=== PATIENT | male | born 1960 | race Caucasian/White ===

== ENCOUNTER → 2023-11-21 10:52 | Outpatient (REF) | payer MEDICARE, SELFPAY ==
[2023-11-21 12:28] LABS: HDL Cholesterol 44 mg/dl; LDL Cholesterol, Calculated 131 mg/dl; Total Cholesterol 244 mg/dl (50-199); Triglyceride 347 mg/dl (10-149); Very Low Density Lipoprotein 69 mg/dl (0-30)
== END ==
LOC: REG 10:52
PROVIDERS: ATTENDING PHYSICIAN Internal Medicine Cardiovascular Disease; FAMILY PHYSICIAN Family Medicine
DX: E78.2 Mixed hyperlipidemia (principal)
CPT/HCPCS: 36415; 80061

== ENCOUNTER → 2024-02-13 09:53 | Outpatient (REF) | payer MEDICARE, SELFPAY ==
[2024-02-13 13:15] LABS: Erythrocyte Sed Rate 15 mm/hour (0-20)
[2024-02-13 13:51] LABS: ALT (SGPT) 27 U/L (0-50); AST (SGOT) 23 U/L (17-59); Albumin 4.2 g/dl (3.5-5.0); Alkaline Phosphatase 70 U/L (38-126); Blood Urea Nitrogen 20 mg/dl (9-20); Calcium 10.4 mg/dl (8.4-10.2); Carbon Dioxide 28 mmol/L (22-30); Chloride 101 mmol/L (98-107); Glucose 120 mg/dl (70-99); HDL Cholesterol 54 mg/dl; LDL Cholesterol, Calculated 64 mg/dl; Potassium 5.2 mmol/L (3.5-5.1); Sodium 138 mmol/L (135-145); Total Bilirubin 0.3 mg/dl (0.2-1.3); Total Cholesterol 154 mg/dl (50-199); Total Protein 7.1 g/dl (6.3-8.2); Triglyceride 182 mg/dl (10-149); Uric Acid 5.4 mg/dl (3.5-8.5); Very Low Density Lipoprotein 36 mg/dl (0-30); eGFR > 60.00
[2024-02-15 14:33] LABS: Rheumatoid Agglutinin Less Than 10 IU (<10 IU)
== END ==
LOC: REG 09:53
PROVIDERS: ATTENDING PHYSICIAN Family Medicine; REFERRING PHYSICIAN Internal Medicine Cardiovascular Disease
DX: M25.50 Pain in unspecified joint (principal); E11.69 Type 2 diabetes mellitus with other specified complication; E78.2 Mixed hyperlipidemia
CPT/HCPCS: 36415; 80053; 80061; 84550; 85652; 86140; 86430

== ENCOUNTER 2024-02-13 11:01 | Outpatient (RCR) | payer MEDICARE, SELFPAY | END 2024-02-13 23:59 | disposition home or self-care (01) | LOC: ROT 11:01 | PROVIDERS: ATTENDING PHYSICIAN Orthopaedic Surgery Hand Surgery; FAMILY PHYSICIAN Family Medicine | DX: Z47.89 Encounter for other orthopedic aftercare (principal); Z73.6 Limitation of activities due to disability | CPT/HCPCS: 97166; 97535 ==

== ENCOUNTER 2024-03-14 11:16 | Outpatient (RCR) | payer MEDICARE, SELFPAY | END 2024-03-14 23:59 | disposition home or self-care (01) | LOC: ROT 11:16 | PROVIDERS: ATTENDING PHYSICIAN Orthopaedic Surgery Hand Surgery; FAMILY PHYSICIAN Family Medicine | DX: Z47.89 Encounter for other orthopedic aftercare (principal); Z73.6 Limitation of activities due to disability; M25.531 Pain in right wrist | CPT/HCPCS: 97010; 97110; 97140 ==

== ENCOUNTER 2024-04-02 13:20 | Outpatient (RCR) | payer MEDICARE, SELFPAY | END 2024-04-02 23:59 | disposition home or self-care (01) | LOC: ROT 13:20 | PROVIDERS: ATTENDING PHYSICIAN Orthopaedic Surgery Hand Surgery; FAMILY PHYSICIAN Family Medicine | DX: Z47.89 Encounter for other orthopedic aftercare (principal); Z73.6 Limitation of activities due to disability | CPT/HCPCS: 97018; 97022; 97110; 97140 ==

== ENCOUNTER → 2024-05-08 08:06 | Outpatient (REF) | payer MEDICARE, SELFPAY ==
[2024-05-08 11:50] LABS: ALT (SGPT) 20 U/L (0-50); AST (SGOT) 22 U/L (17-59); Albumin 4.3 g/dl (3.5-5.0); Alkaline Phosphatase 64 U/L (38-126); Blood Urea Nitrogen 19 mg/dl (9-20); Carbon Dioxide 29 mmol/L (22-30); Chloride 98 mmol/L (98-107); Glucose 127 mg/dl (70-99); HDL Cholesterol 56 mg/dl; LDL Cholesterol, Calculated 126 mg/dl; Potassium 4.6 mmol/L (3.5-5.1); Sodium 137 mmol/L (135-145); Total Bilirubin 0.5 mg/dl (0.2-1.3); Total Cholesterol 219 mg/dl (50-199); Total Protein 6.8 g/dl (6.3-8.2); Triglyceride 187 mg/dl (10-149); Very Low Density Lipoprotein 37 mg/dl (0-30); eGFR > 60.00
[2024-05-08 12:16] LABS: PSA, Total - Screen 0.76 ng/ml (0.0-4.0)
[2024-05-08 12:25] LABS: Glycohemoglobin (HgbA1c) 6.9 % (4.0-5.6)
== END ==
LOC: REG 08:06
PROVIDERS: ATTENDING PHYSICIAN Internal Medicine Cardiovascular Disease; FAMILY PHYSICIAN Family Medicine
DX: E11.69 Type 2 diabetes mellitus with other specified complication (principal); Z12.5 Encounter for screening for malignant neoplasm of prostate; E78.5 Hyperlipidemia, unspecified
CPT/HCPCS: 36415; 80053; 80061; 83036; G0103

== ENCOUNTER 2024-05-17 08:21 | Outpatient (RCR) | payer MEDICARE, SELFPAY | END 2024-05-17 23:59 | disposition home or self-care (01) | LOC: ROT 08:21 | PROVIDERS: ATTENDING PHYSICIAN Orthopaedic Surgery Hand Surgery; FAMILY PHYSICIAN Family Medicine | DX: Z47.89 Encounter for other orthopedic aftercare (principal); Z73.6 Limitation of activities due to disability | CPT/HCPCS: 97010; 97022; 97110; 97140 ==

== ENCOUNTER 2024-06-07 09:05 | Outpatient (RCR) | payer MEDICARE, SELFPAY | END 2024-06-07 23:59 | disposition home or self-care (01) | LOC: ROT 09:05 | PROVIDERS: ATTENDING PHYSICIAN Orthopaedic Surgery Hand Surgery; FAMILY PHYSICIAN Family Medicine | DX: Z47.89 Encounter for other orthopedic aftercare (principal); Z73.6 Limitation of activities due to disability; M25.531 Pain in right wrist | CPT/HCPCS: 97022; 97110; 97140 ==

== ENCOUNTER → 2024-06-14 09:30 | Outpatient (REF) | payer MEDICARE, SELFPAY ==
[2024-06-14 11:26] LABS: % Basophils 0.6 % (0-2); % Eosinophils 2.8 % (0-6); % Immature Granulocytes 0.6 % (0-0.5); % Lymphocytes 19.8 % (20.5-51.1); % Monocytes 9.8 % (1.7-9.3); % Neutrophils 66.4 % (42.2-75.2); Absolute Basophils 0.1 10^3/uL (0-0.2); Absolute Eosinophils 0.4 10^3/uL (0-0.7); Absolute Immature Granulocytes 0.1 10^3/uL (0-0.05); Absolute Lymphocytes 2.5 10^3/uL (1.2-3.4); Absolute Monocytes 1.2 10^3/uL (0.1-0.6); Absolute Neutrophils 8.2 10^3/uL (1.4-6.5); Hematocrit 42.2 % (39.0-52.0); Mean Corp Hgb Conc. 33.2 g/dL (33.0-37.0); Mean Corpuscular Hgb 28.3 pg (27.0-31.0); Mean Corpuscular Volume 85.3 fL (80.0-94.0); Mean Platelet Volume 10.5 fL (7.4-10.4); Nucleated Red Blood Cells % 0 % (-); Platelet Count 405 10^3/uL (130-400); Red Blood Cell Count 4.95 10^6/uL (4.70-6.10); Red Cell Dist. Width 13.6 % (11.5-14.5); White Blood Cell Count 12.4 10^3/uL (4.8-10.8)
[2024-06-14 11:57] LABS: ALT (SGPT) 19 U/L (0-50); AST (SGOT) 20 U/L (17-59); Albumin 4.3 g/dl (3.5-5.0); Alkaline Phosphatase 76 U/L (38-126); Blood Urea Nitrogen 18 mg/dl (9-20); Calcium 9.8 mg/dl (8.4-10.2); Carbon Dioxide 27 mmol/L (22-30); Chloride 99 mmol/L (98-107); Glucose 115 mg/dl (70-99); Potassium 4.6 mmol/L (3.5-5.1); Sodium 141 mmol/L (135-145); Total Bilirubin 0.4 mg/dl (0.2-1.3); eGFR > 60.00
[2024-06-14 12:21] LABS: TSH 2.02 uIU/ml (0.47-4.68)
== END ==
LOC: REG 09:30
PROVIDERS: ATTENDING PHYSICIAN Physician Assistant
DX: J06.9 Acute upper respiratory infection, unspecified (principal); I48.91 Unspecified atrial fibrillation
CPT/HCPCS: 36415; 80053; 84443; 85025; 87045; 87046; 87324; 87328; 87329; 87427; 87449

== ENCOUNTER → 2024-06-18 15:12 | Outpatient (REF) | payer MEDICARE, SELFPAY | LOC: RAD 15:12 | PROVIDERS: ATTENDING PHYSICIAN Nurse Practitioner Family; FAMILY PHYSICIAN Family Medicine | DX: R06.00 Dyspnea, unspecified (principal) | CPT/HCPCS: 71046 ==

== ENCOUNTER → 2024-07-31 09:33 | Outpatient (REF) | payer MEDICARE, SELFPAY ==
[2024-07-31 10:52] LABS: ALT (SGPT) 23 U/L (0-50); AST (SGOT) 23 U/L (17-59); HDL Cholesterol 49 mg/dl; LDL Cholesterol, Calculated 48 mg/dl; Total Cholesterol 132 mg/dl (50-199); Triglyceride 176 mg/dl (10-149); Very Low Density Lipoprotein 35 mg/dl (0-30)
== END ==
LOC: REG 09:33
PROVIDERS: ATTENDING PHYSICIAN Internal Medicine Cardiovascular Disease; FAMILY PHYSICIAN Family Medicine
DX: E78.2 Mixed hyperlipidemia (principal)
CPT/HCPCS: 36415; 80061; 84450; 84460

== ENCOUNTER → 2024-08-10 11:20 | Outpatient (REF) | payer MEDICARE, SELFPAY ==
[2024-08-10 12:35] LABS: ALT (SGPT) 25 U/L (0-50); AST (SGOT) 22 U/L (17-59); Albumin 4.3 g/dl (3.5-5.0); Alkaline Phosphatase 58 U/L (38-126); Blood Urea Nitrogen 16 mg/dl (9-20); Calcium 9.9 mg/dl (8.4-10.2); Carbon Dioxide 31 mmol/L (22-30); Chloride 100 mmol/L (98-107); Glucose 130 mg/dl (70-99); Potassium 5.2 mmol/L (3.5-5.1); Sodium 142 mmol/L (135-145); Total Bilirubin 0.7 mg/dl (0.2-1.3); eGFR > 60.00
[2024-08-10 14:17] LABS: Glycohemoglobin (HgbA1c) 7.3 % (4.0-5.6)
== END ==
LOC: REG 11:20
PROVIDERS: ATTENDING PHYSICIAN Family Medicine
DX: E11.69 Type 2 diabetes mellitus with other specified complication (principal)
CPT/HCPCS: 36415; 80053; 83036

== ENCOUNTER → 2024-11-20 07:12 | Outpatient (REF) | payer MEDICARE, SELFPAY ==
[2024-11-20 09:12] LABS: % Basophils 0.6 % (0-2); % Eosinophils 2.6 % (0-6); % Immature Granulocytes 0.4 % (0-0.5); % Lymphocytes 23.8 % (20.5-51.1); % Monocytes 8.7 % (1.7-9.3); % Neutrophils 63.9 % (42.2-75.2); Absolute Basophils 0.1 10^3/uL (0-0.2); Absolute Eosinophils 0.3 10^3/uL (0-0.7); Absolute Lymphocytes 2.7 10^3/uL (1.2-3.4); Absolute Neutrophils 7.2 10^3/uL (1.4-6.5); Hematocrit 46.1 % (39.0-52.0); Hemoglobin 14.6 g/dL (13.0-18.0); Mean Corp Hgb Conc. 31.7 g/dL (33.0-37.0); Mean Corpuscular Hgb 27.8 pg (27.0-31.0); Mean Corpuscular Volume 87.8 fL (80.0-94.0); Mean Platelet Volume 10.4 fL (7.4-10.4); Nucleated Red Blood Cells % 0 % (-); Platelet Count 410 10^3/uL (130-400); Red Blood Cell Count 5.25 10^6/uL (4.70-6.10); Red Cell Dist. Width 14.3 % (11.5-14.5); White Blood Cell Count 11.3 10^3/uL (4.8-10.8)
[2024-11-20 09:26] LABS: Glycohemoglobin (HgbA1c) 8.7 % (4.0-5.6)
[2024-11-20 10:23] LABS: Microalbumin, Random Urine 1.6 mg/dl (0.6-1.7); Microalbumin/creatinine Ratio 5.5 mg/g
[2024-11-20 10:27] LABS: ALT (SGPT) 18 U/L (0-50); AST (SGOT) 19 U/L (17-59); Albumin 4.1 g/dl (3.5-5.0); Alkaline Phosphatase 74 U/L (38-126); Blood Urea Nitrogen 19 mg/dl (9-20); Calcium 9.9 mg/dl (8.4-10.2); Carbon Dioxide 28 mmol/L (22-30); Chloride 101 mmol/L (98-107); Glucose 155 mg/dl (70-99); Potassium 4.6 mmol/L (3.5-5.1); Sodium 139 mmol/L (135-145); Total Bilirubin 0.6 mg/dl (0.2-1.3); Total Protein 6.9 g/dl (6.3-8.2); eGFR > 60.00
== END ==
LOC: REG 07:12
PROVIDERS: ATTENDING PHYSICIAN Family Medicine
DX: E11.69 Type 2 diabetes mellitus with other specified complication (principal); D72.829 Elevated white blood cell count, unspecified
CPT/HCPCS: 36415; 80053; 82043; 82570; 83036; 85025

== ENCOUNTER 2024-12-08 17:12 | Emergency (ER) | payer MEDICARE, SELFPAY ==
[2024-12-08 17:21] VITALS: BP 159/108
[2024-12-08] MEDS: TYLENOL 1000 MG PO (17:28)
[2024-12-08 17:52] LABS: COVID-19 Antigen Negative (Negative)
--- NOTE | 2024-12-08 19:26 | ED.GENMED ---
History of Present Illness
General
Chief Complaint: Breathing Problem
Time Seen by Provider: 12/08/24 19:05
History of Present Illness
History of Present Illness:
Patient presents to the emergency and shortness of breath. Symptoms started overnight on Monday last week. He notes that he has a history of GERD and typically sleeps elevated [place]. After
that night he has had a cough that is gradually worsened throughout the week. Endorses chills tachycardia. Endorses dyspnea. Denies leg swelling or chest pain.
Past History
Past History
ED Past Medical History: CAD, GERD, HTN, Hypercholesterolemia, CA and Other (TBI, PNA, Sleep apnea)
ED Past Surgical History: Cardiac (Stents X 4) and Orthopedic
Social History
Tobacco: Non-smoker
Alcohol: Occasional
Drug: None
Personal:
Living: with family
Employment: Employed
Phy Exam
Physical Exam
Physical Exam:
GENERAL APPEARANCE: NAD, well developed/ well nourished
EYES lids/conjunctiva normal
EARS/NOSE/THROAT Mucous membranes moist, uvula midline without oral pharyngeal erythema, exudate or swelling
HEAD/NECK normocephalic atraumatic, neck is supple.
RESPIRATORY frequent coughing noted. Diminished breath sounds at the bases.
CARDIAC Regular rate and rhythm, no edema.
ABDOMINAL Soft, ND/NT. No pulsatile masses on exam, rebound tenderness, Snyder sign or pain over Mcburney's point.
MUSCLES/EXTREMITIES No abnormal range of motion, no swelling.
SKIN Warm, pink and dry. No rashes
NEUROLOGICAL Speech is clear and appropriate. Normal level of consciousness. 5/5 strength in all extremities.
PSYCH Normal mood and affect. Judgement/competence is appropriate
Scores
Heart Failure Risk
Heart Failure Risk Score: Not Applicable
Course
Orders/Labs/Results
Orders:
Orders
12/08/24 17:24
Acetaminophen [Tylenol] 1,000 mg PO NOW STA
Chest [CR Chest - 2 Views ] Urgent
Comment:
Reason For Exam: fever, sob, cough
12/08/24 17:26
COVID-19 Antigen Urgent
Source: Nasal Swab
Influenza A+B Rapid Molecular Urgent
ANDREIA Source: Nasal Swab
Specimen Description:
12/08/24 17:27
Acetaminophen [Tylenol] 1,000 mg .ROUTE .STK-MED ONE
12/08/24 19:37
Complete Blood Count/With Diff Urgent
Comprehensive Metabolic Panel Urgent
Lactic Acid Q4H
Comment: ON ICE, CANCEL 2ND ORDER IF FIRST LACTIC ACID LEVEL <2
Blood Culture Q20M
ANDREIA Source: Blood/Venous
Specimen Description:
Comment: Urgent from separate sites. If patient screens positive for possible sepsis
Blood Culture Q20M
ANDREIA Source: Blood/Venous
Specimen Description:
Comment: Urgent from separate sites. If patient screens positive for possible sepsis
12/08/24 20:02
0.9% Sodium Chloride 1000 ml [Nss] 1,000 ml IV BOLUS
12/08/24 21:22
Azithromycin [Zithromax] 500 mg PO NOW STA
CefTRIAXone [Rocephin] 1,000 mg IV NOW STA
12/08/24 21:46
Sterile Water [Sterile Water For Injection] 10 ml .ROUTE .STK-MED ONE
Abnormal Lab Results
12/08/24
19:37
WBC 14.3 H 10^3/uL
(4.8-10.8)
Absolute Neuts (auto) 10.7 H 10^3/uL
(1.4-6.5)
Absolute Monos (auto) 1.7 H 10^3/uL
(0.1-0.6)
Lymphocytes % 12.3 L %
(20.5-51.1)
Monocytes % 12.2 H %
(1.7-9.3)
Sodium 132 L mmol/L
(135-145)
Glucose 133 H mg/dl
(70-99)
12/08/24 19:37
12/08/24 19:37
Vital Signs
Initial and Last Documented VS:
Initial Vital Signs
Temp Pulse Resp Pulse Ox
102.9 F H 109 18 95
12/08/24 17:19 12/08/24 17:19 12/08/24 17:19 12/08/24 17:19
Last Documented Vital Signs
Temp Pulse Resp BP Pulse Ox
98.4 F 91 17 148/74 94
12/08/24 23:14 12/08/24 22:15 12/08/24 22:15 12/08/24 22:00 12/08/24 22:00
*Critical Care Note
Total Time (30-74mins, 75-104mins- exclusive of procedures): Not Applicable
ED Attending Note
ED Attending Note
ED Attending Note:
patient well appearing
small pneumonia on xray
CURB--65 - 1 point, low risk
offered observation patient prefers to go home
will give dose of IV abx here and start on oral abx as oupatient
-
Portions of this chart may have been created with voice recognition software.� Occasional wrong word or��sound alike� substitutions may have occurred due to the inherent limitations of voice recognition software.
Discharge Plan
Departure
Patient Disposition: Home (Routine Discharge)
Date of Disposition: 12/08/24
Time of Disposition: 21:50
Patient with high blood pressure during this ER visit?: Yes
Discharge Problem:
Pneumonia
Instructions: Community-acquired pneumonia in adults
Prescriptions:
New
cefpodoxime 200 mg tablet
200 mg PO BID Qty: 14 0RF
azithromycin [Zithromax] 250 mg tablet
250 mg PO DAILY Qty: 4 0RF
No Action
rabeprazole [AcipHex] 20 MG tablet,delayed release (DR/EC)
20 mg PO Q48H
aspirin [Aspir-Low] 81 MG tablet,delayed release (DR/EC)
81 mg PO QPM
rosuvastatin 10 MG tablet
10 mg PO QPM
Multivitamin
1 tab PO QPM
acetaminophen [Tylenol] 325 mg Tablet
500 mg PO DAILY
clopidogrel 75 MG tablet
75 mg PO DAILY Qty: 90 5RF
nitroglycerin 0.4 MG tablet, sublingual
0.4 mg sublingual [id number] PRN (Reason: chest pain) Qty: 25 2RF
doxycycline hyclate 100 mg capsule
100 mg PO BID Qty: 14 0RF
Referrals:
Elliot Tapia MD [Family Provider] -
Interventions
Interventions:
*Risk Screen - Suicide Last Done: 12/08/24 19:44
*General Assessment Last Done: 12/08/24 19:44
*Neglect/Abuse Screening Last Done: 12/08/24 19:44
*ED- Fall Risk Assessment Last Done: 12/08/24 19:44
*ED COVID-19 Vaccine History Last Done: 12/08/24 23:14
*Nursing Disposition Last Done: 12/08/24 23:14
ED- Cardiac Assessment Last Done: 12/08/24 19:44
ED- Pulmonary Assessment Last Done: 12/08/24 19:44
Discharge Date and Time
Discharge Date/Time: 12/08/24 22:50
Print Language: IRANIAN
[2024-12-08 19:44] VITALS: BMI 25.1
[2024-12-08 19:49] LABS: % Basophils 0.4 % (0-2); % Eosinophils 0.1 % (0-6); % Immature Granulocytes 0.3 % (0-0.5); % Lymphocytes 12.3 % (20.5-51.1); % Monocytes 12.2 % (1.7-9.3); % Neutrophils 74.7 % (42.2-75.2); Absolute Basophils 0.1 10^3/uL (0-0.2); Absolute Lymphocytes 1.8 10^3/uL (1.2-3.4); Absolute Monocytes 1.7 10^3/uL (0.1-0.6); Absolute Neutrophils 10.7 10^3/uL (1.4-6.5); Hematocrit 41.5 % (39.0-52.0); Hemoglobin 13.9 g/dL (13.0-18.0); Mean Corp Hgb Conc. 33.5 g/dL (33.0-37.0); Mean Corpuscular Hgb 28.2 pg (27.0-31.0); Mean Corpuscular Volume 84.2 fL (80.0-94.0); Mean Platelet Volume 10.3 fL (7.4-10.4); Nucleated Red Blood Cells % 0 % (-); Platelet Count 288 10^3/uL (130-400); Red Blood Cell Count 4.93 10^6/uL (4.70-6.10); Red Cell Dist. Width 14.4 % (11.5-14.5); White Blood Cell Count 14.3 10^3/uL (4.8-10.8)
[2024-12-08 20:04] LABS: Lactic Acid 1.2 mmol/L (0.7-2.0)
[2024-12-08 20:05] LABS: ALT (SGPT) 15 U/L (0-50); AST (SGOT) 18 U/L (17-59); Albumin 4.4 g/dl (3.5-5.0); Alkaline Phosphatase 63 U/L (38-126); Blood Urea Nitrogen 18 mg/dl (9-20); Calcium 9.2 mg/dl (8.4-10.2); Carbon Dioxide 23 mmol/L (22-30); Chloride 98 mmol/L (98-107); Estimated Creatinine Clearance 66 ml/min; Glucose 133 mg/dl (70-99); Potassium 3.8 mmol/L (3.5-5.1); Sodium 132 mmol/L (135-145); Total Bilirubin 0.7 mg/dl (0.2-1.3); Total Protein 6.9 g/dl (6.3-8.2); eGFR > 60.00
[2024-12-08] MEDS: NSS 1000 IV (20:46)
[2024-12-08 21:05] VITALS: BP 136/80
[2024-12-08 22:00] VITALS: BP 148/74
[2024-12-08] MEDS: ROCEPHIN 1000 MG IV (22:10)
[2024-12-08] MEDS: ZITHROMAX 500 MG PO (22:10)
== END 2024-12-08 22:50 | disposition home or self-care (01) ==
LOC: EMR 17:12
PROVIDERS: EMERGENCY PHYSICIAN Emergency Medicine; FAMILY PHYSICIAN Family Medicine
DX: J18.9 Pneumonia, unspecified organism (principal); I10 Essential (primary) hypertension; Z11.52 Encounter for screening for COVID-19
CPT/HCPCS: 99284; 96374; 96361; 71046; 80053; 83605; 85025; 87040; 87502; 87811

== ENCOUNTER → 2024-12-23 08:28 | Outpatient (REF) | payer MEDICARE, SELFPAY ==
--- NOTE | 2024-12-18 08:06 | PN.DIAED02 ---
Addendum entered by Fernanda Ambrocio RN 12/18/24 09:19:
12/17/2024 INITIAL DSME MEETING
Met with Aidan to discuss diabetes management. His HbA1c from November 2024 was 8.7%, he states this is new and I informed him that previous A1C values from last year are diagnostic of DM: 7.3% 07/2024 and 6.9% 04/2024. He states he was recently on
steroids for pulmonary issues, I educated that steroids can raise glucose values.
He has a glucometer, test strips and lancets and occasionally checks BS; declined needing further instruction. I educated on pathophysiology of T2D vs. T1D, complications, importance of proper foot care and eye exams. I provided education on
meaning of HbA1c, educated on signs of hyperglycemia, he admits to feeling frequent thirst and neuropathy. Educated on signs of hypoglycemia and hypoglycemia protocol, he denies symptoms.
I reviewed BS goals, recommended he SMGB once daily for 1-2 weeks, including preprandial AM and 2 hours post prandial with different meals and also documenting meal choices. Suggested he review with diabetes team and PCP in the future. His PCP
placed order for CGM, member plans to pay out of pocket, I provided education on OTC CGM's to compare for cost.
Asked patient to contact health insurer to discuss coverage and fees for DMSE class accredited by [employer], she verbalized understanding. Encouraged her to contact office before class with any concerns.
Original Note:
Referral
DSME Class Series Code: [id number]
Referred For: Diabetes Self-Management Training, Medical Nutrition Therapy, Self-Blood Glucose Monitoring, Long-Term Complication Instruction, Accute Complication Instruction, Continuous Glucose Monitoring, Medication management, Care Coordination,
Disease Management
PHI Release Authorization Form Signed: Yes
Patient Problems:
Current Active Problems
Problem Status Onset
Type 2 diabetes mellitus with other specified complication
Demographic
(1) Type 2 diabetes mellitus with other specified complication
Status: Acute Code(s): E11.69 - Type 2 diabetes mellitus with other specified complication
Patient's primary language-: Chinese
Education: College degree
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
Hours Worked/Week: 20-40
Shift: Day
- Social
Primary Support Person: Self
Primary Care Takers: Self
Living Arrangements: Self & spouse, Family
- Learning Methods
Preferred Method: Video
Barriers to Learning: None
Glycemic Control
- Blood Glucose Monitoring Assessment
Blood glucose monitoring at home: Yes (155)
Monitor Brands: Other (has Rx for CGM)
- Hyperglycemia Assessment
Experiences Hyperglycemia: Yes (freq thirst, neuropathy)
Frequency: 1-3x per week
- Hypoglycemia Assessment
Patient experiences hypoglycemia: No
- Blood Glucose Monitoring Results
Source: lab
- Hemoglobin A1c
Date: 11/20/24
A1C Percentage (%): 8.7
Medical History of Diabetes
Family Diabetes History: Father
Previous Diabetes Education: No
Previous visit with Dietitian: No
Complications/Comorbidity/Specialist: Diabetic Neuropathy, Gastrointestinal disease (Wilder's Esoph and GERD: Dexilant 60 mg QD, Pepcid 20 mg QD), Hyperlipidemia (CAD: Repatha 140 mg/dL q2w, Plavix 75 mg QD, Nitroglycerin 0.4 mg PRN, ASA 81 MG
QD), Metabolic (T2D: Metformin ER 500 mg QD), Neuropathy, Pulmonary disease (reactive airway, PMH PNA, Covid: Singulair 10 mg QD, BREO 200-25 ACT 1 PUFF QDFLUTICASONE 50 MCG/ACT 2 PUFFS QD)
Measures
- Anthropometrics
Height: 5 ft 6 in
Actual Weight: 157 lb
- Blood Pressure / Pulse
Blood pressure: 122/75
Pulse: 81
- Diabetes Management
Medical Management for Diabetes: Complete physical exam (11/20/2024), Dental exam (07/02/2024), Dilated eye exam (10/21/2024), Other (Covid cax 11/26/2023)
Self-Care
- Tobacco Usage
Do you now, or have you ever smoked?: Never smoked
- Alcohol & Drugs Usage
Amount/day: < 1 drink per day
- Meals & Dining
Meals & Dining: Patient skips meals: No, Food Intolerance / Allergy: No, Cultural / Caodaism Dietary Needs: No
Primary Food Business Continuity Planning Director: Self
Primary Fortune Teller: Self
Dining Out Frequency: 1-3x per week
- Physical Activity
Physical Limitation: No
- Self Foot-Care
Foot Problems: Neuropathy
Performs Self Foot-Exam: No
- Patient-Self Assessment
Diabetes Knowledge: Poor
Feelings About Diabetes: Overwhelmed / Confused
General Health: Fair
Importance of Health: Extremely
Stress Level: Medium
Diabetes Interferes With:: Other (eating)
Depression Survey Score: 5
- Diabetes Identification
Carries Diabetes Identification: No
Diabetes Identification Information Provided: Yes
Care Plan
- Education Needs
Patient Education Needs: Diabetes disease process, Chronic complications, Acute complications, Medication, Monitoring, Physical activity, Psychosocial Adjustment, Nutritional management, Goal setting & problem solving
Recommended Diabetes Training Program based on assessment: Outpatient Diabetes Education Program
--- NOTE | 2024-12-18 09:15 | PN.DIAED04 ---
Education Record
- Education Record
Class Attended: Other
[facility] Class Series Code: [id number]
Instructor: Nurse Practitioner (YESSICA Tavarez)
Pre-Test Score (%): 50
Post-Program Knowledge: Needs review / Assistance
Goals
- Goal 1
Being Active: Exercise 15 minutes-3 times per week (currently no exercise)
Goals To Be Evaluated: Exercise 15 mins-3x/week
- Goal 2
Healthy Eating: Make better food choices
Goals To Be Evaluated: Make better food choices
- Goal 3
Monitoring: Monitor more often
Goals To Be Evaluated: Monitor more often
--- NOTE | 2024-12-24 10:02 | PN.DIAED14 ---
This is to notify you that your patient with diabetes, GINO PHILLIPS ( 1960), has enrolled in our diabetes self-management classes that are being held at [facility].
These classes will include an introduction to diabetes, diet, medication, exercise and prevention of complications. At the end of our class series, you will receive a report of your patient's participation and progress for your records.
Please contact me at the Diabetes Center, , if there is any particular information regarding your patient that might be helpful to me.
Sincerely,
Alberto JUAN-AMRIT,[facility]
--- NOTE | 2024-12-24 10:06 | PN.DIAED04 ---
Education Record
- Education Record
Class Attended: Class 1
DSME Class Series Code: [id number]
Instructor: Registered Nurse (Makayla Piña RN)
Class Curriculum:
Outpatient Diabetes Education Program:
Class 1 (120 minutes)
Describe the diabetes disease process and treatment options
Diabetes management
Develop personal strategies to promote health and behavior change
Integrate psychosocial adjustment for daily living
Monitor blood glucose and other parameters. Interpret and use the results for self-management decision making
Prevent, detect, and treat acute complications
Class Length (mins): 120
Post-Class 1 Test Score (%): 94
--- NOTE | 2024-12-26 09:17 | PN.DIAED06 ---
Meal Plans - Regular
- Meal Plan
Diabetic Meal Plan Name: 1600 calories
Breakfast - Total Carbohydrate (grams): 45
Breakfast - Starch Carbohydrate: 0
Breakfast - Fruit Carbohydrate: 0
Breakfast - Milk Carbohydrate: 0
Breakfast - Nonstarchy Vegetables: Yes
Breakfast - Meat/Protein: 1
Breakfast - Fat: 2
Morning Snack - Total Carbohydrate (grams): 15
Morning Snack - Starch Carbohydrate: 0
Morning Snack - Fruit Carbohydrate: 0
Morning Snack - Milk Carbohydrate: 0
Morning Snack - Nonstarchy Vegetables: Yes
Morning Snack - Meat/Protein: 0.5
Morning Snack - Fat: 0
Lunch - Total Carbohydrate (grams): 30
Lunch - Starch Carbohydrate: 0
Lunch - Fruit Carbohydrate: 0
Lunch - Milk Carbohydrate: 0
Lunch - Nonstarchy Vegetables: Yes
Lunch - Meat/Protein: 3
Lunch - Fat: 1
Afternoon Snack - Total Carbohydrate (grams): 15
Afternoon Snack - Starch Carbohydrate: 0
Afternoon Snack - Fruit Carbohydrate: 0
Afternoon Snack - Milk Carbohydrate: 0
Afternoon Snack - Nonstarchy Vegetables: Yes
Afternoon Snack - Meat/Protein: 0.5
Afternoon Snack - Fat: 0
Dinner - Total Carbohydrate (grams): 30
Dinner - Starch Carbohydrate: 0
Dinner - Fruit Carbohydrate: 0
Dinner - Milk Carbohydrate: 0
Dinner - Nonstarchy Vegetables: Yes
Dinner - Meat/Protein: 3
Dinner - Fat: 1
Evening Snack - Total Carbohydrate (grams): 15
Evening Snack - Starch Carbohydrate: 0
Evening Snack - Fruit Carbohydrate: 0
Evening Snack - Milk Carbohydrate: 0
Evening Snack - Nonstarchy Vegetables: Yes
Evening Snack - Meat/Protein: 0
Evening Snack - Fat: 0
== END ==
LOC: DES 08:28
PROVIDERS: ATTENDING PHYSICIAN Family Medicine
DX: E11.69 Type 2 diabetes mellitus with other specified complication (principal)
CPT/HCPCS: 99078

== ENCOUNTER → 2024-12-30 08:28 | Outpatient (REF) | payer MEDICARE, SELFPAY ==
--- NOTE | 2024-12-31 09:56 | PN.DIAED04 ---
Education Record
- Education Record
Class Attended: Class 2
DSME Class Series Code: [id number]
Instructor: Registered Dietitian (Heather Noble, RD, LDN, CDE)
Class Curriculum:
Outpatient Diabetes Education Program:
Class 2 (120 minutes)
Incorporate nutritional management into lifestyle
Understanding nutritional value
Understanding carbohydrate counting
Class Length (mins): 120
== END ==
LOC: DES 08:28
PROVIDERS: ATTENDING PHYSICIAN Family Medicine
DX: E11.69 Type 2 diabetes mellitus with other specified complication (principal)
CPT/HCPCS: 99078

== ENCOUNTER → 2025-01-01 09:09 | Outpatient (REF) | payer MEDICARE, SELFPAY | LOC: REG 09:09 | PROVIDERS: ATTENDING PHYSICIAN Internal Medicine Critical Care Medicine; FAMILY PHYSICIAN Family Medicine | DX: R05.8 Other specified cough (principal) | CPT/HCPCS: 87070; 87205 ==

== ENCOUNTER 2025-01-03 06:22 | Day surgery (SDC) | payer MEDICARE, SELFPAY ==
[2025-01-03 08:24] LABS: Glucose - Point of Care 121 mg/dl (70-99)
== END 2025-01-03 09:48 | disposition home or self-care (01) ==
LOC: GI 06:22
PROVIDERS: ATTENDING PHYSICIAN Internal Medicine Gastroenterology
DX: K22.70 Barrett's esophagus without dysplasia (principal); K44.9 Diaphragmatic hernia without obstruction or gangrene; K20.90 Esophagitis, unspecified without bleeding
CPT/HCPCS: 43239; 88305; 82962

== ENCOUNTER → 2025-01-06 08:10 | Outpatient (REF) | payer MEDICARE, SELFPAY | LOC: DES 08:10 | PROVIDERS: ATTENDING PHYSICIAN Family Medicine | DX: E11.69 Type 2 diabetes mellitus with other specified complication (principal) | CPT/HCPCS: 99078 ==

== ENCOUNTER → 2025-01-13 10:48 | Outpatient (REF) | payer MEDICARE, SELFPAY ==
--- NOTE | 2025-01-14 13:13 | PN.DIAED04 ---
Education Record
- Education Record
Class Attended: Class 4
DSME Class Series Code: [id number]
Instructor: Nurse Practitioner (YESSICA Tavarez)
Class Curriculum:
Outpatient Diabetes Education Program:
Class 4 (120 minutes)
Develop personal strategies to promote health and behavior change
Incorporate physical activity into lifestyle
Utilize medications safety for maximum therapeutic effectiveness
Understand different medication/insulin mechanism of action
Preparing for travel
Class Length (mins): 120
Post-Class 4 Test Score (%): 100
== END ==
LOC: DES 10:48
PROVIDERS: ATTENDING PHYSICIAN Family Medicine
DX: E11.69 Type 2 diabetes mellitus with other specified complication (principal)
CPT/HCPCS: 99078

== ENCOUNTER → 2025-01-16 11:20 | Outpatient (REF) | payer MEDICARE, SELFPAY | LOC: RAD 11:20 | PROVIDERS: ATTENDING PHYSICIAN Nurse Practitioner Adult Health; FAMILY PHYSICIAN Family Medicine | DX: J45.20 Mild intermittent asthma, uncomplicated (principal) | CPT/HCPCS: 71046 ==

== ENCOUNTER → 2025-01-20 13:53 | Outpatient (REF) | payer MEDICARE, SELFPAY | LOC: DES 13:53 | PROVIDERS: ATTENDING PHYSICIAN Family Medicine | DX: E11.69 Type 2 diabetes mellitus with other specified complication (principal) | CPT/HCPCS: 99078 ==

== ENCOUNTER → 2025-01-20 17:27 | Outpatient (REF) | payer MEDICARE, SELFPAY ==
[2025-01-20 18:40] LABS: IgG 1121 mg/dl (700-1600); IgM 83 mg/dl (40-230)
[2025-01-20 19:24] LABS: IgA < 40 mg/dl (70-400)
== END ==
LOC: REG 17:27
PROVIDERS: ATTENDING PHYSICIAN Internal Medicine Critical Care Medicine; FAMILY PHYSICIAN Family Medicine
DX: Z87.01 Personal history of pneumonia (recurrent) (principal)
CPT/HCPCS: 36415; 82784

== ENCOUNTER → 2025-02-28 07:09 | Outpatient (REF) | payer MEDICARE, SELFPAY ==
[2025-02-28 12:14] LABS: Uric Acid 4.8 mg/dl (3.5-8.5)
[2025-03-02 07:42] LABS: CCP Antibody IgG/IgA 40 Units (0-19)
== END ==
LOC: REG 07:09
PROVIDERS: ATTENDING PHYSICIAN Student in an Organized Health Care Education/Training Program; FAMILY PHYSICIAN Family Medicine
DX: M25.40 Effusion, unspecified joint (principal)
CPT/HCPCS: 36415; 84550; 86200; 86430

== ENCOUNTER → 2025-03-06 14:40 | Outpatient (REF) | payer MEDICARE, SELFPAY ==
[2025-03-06 15:27] LABS: % Basophils 0.3 % (0-2); % Eosinophils 0.9 % (0-6); % Immature Granulocytes 0.5 % (0-0.5); % Monocytes 5.3 % (1.7-9.3); Absolute Basophils 0.1 10^3/uL (0-0.2); Absolute Eosinophils 0.2 10^3/uL (0-0.7); Absolute Immature Granulocytes 0.1 10^3/uL (0-0.05); Absolute Lymphocytes 2.6 10^3/uL (1.2-3.4); Absolute Monocytes 1.1 10^3/uL (0.1-0.6); Absolute Neutrophils 17.2 10^3/uL (1.4-6.5); Hematocrit 42.9 % (39.0-52.0); Hemoglobin 14.2 g/dL (13.0-18.0); Mean Corp Hgb Conc. 33.1 g/dL (33.0-37.0); Mean Corpuscular Hgb 27.7 pg (27.0-31.0); Mean Corpuscular Volume 83.8 fL (80.0-94.0); Mean Platelet Volume 10.1 fL (7.4-10.4); Nucleated Red Blood Cells % 0 % (-); Platelet Count 451 10^3/uL (130-400); Red Blood Cell Count 5.12 10^6/uL (4.70-6.10); Red Cell Dist. Width 15.2 % (11.5-14.5); White Blood Cell Count 21.3 10^3/uL (4.8-10.8)
[2025-03-06 16:11] LABS: ALT (SGPT) 24 U/L (0-50); AST (SGOT) 17 U/L (17-59); Albumin 4.1 g/dl (3.5-5.0); Alkaline Phosphatase 79 U/L (38-126); Blood Urea Nitrogen 27 mg/dl (9-20); Calcium 9.8 mg/dl (8.4-10.2); Carbon Dioxide 24 mmol/L (22-30); Chloride 103 mmol/L (98-107); Glucose 176 mg/dl (70-99); Potassium 4.7 mmol/L (3.5-5.1); Sodium 136 mmol/L (135-145); Total Bilirubin 0.4 mg/dl (0.2-1.3); Total Protein 6.7 g/dl (6.3-8.2); eGFR > 60.00
[2025-03-06 16:27] LABS: TSH 1.91 uIU/ml (0.47-4.68)
[2025-03-07 09:05] LABS: Glycohemoglobin (HgbA1c) 7.5 % (4.0-5.6)
== END ==
LOC: RAD 14:40
PROVIDERS: ATTENDING PHYSICIAN Physician Assistant; FAMILY PHYSICIAN Family Medicine
DX: R10.30 Lower abdominal pain, unspecified (principal); R19.7 Diarrhea, unspecified; E11.69 Type 2 diabetes mellitus with other specified complication
CPT/HCPCS: 36415; 74177; 80053; 83036; 84443; 85025; 87045; 87046; 87324; 87328; 87329; 87427; 87449; Q9967

== ENCOUNTER → 2025-03-07 09:10 | Outpatient (REF) | payer MEDICARE, SELFPAY ==
[2025-03-07 09:54] LABS: % Basophils 0.2 % (0-2); % Eosinophils 1.1 % (0-6); % Immature Granulocytes 0.6 % (0-0.5); % Lymphocytes 12.1 % (20.5-51.1); % Monocytes 5.9 % (1.7-9.3); % Neutrophils 80.1 % (42.2-75.2); Absolute Eosinophils 0.2 10^3/uL (0-0.7); Absolute Immature Granulocytes 0.1 10^3/uL (0-0.05); Absolute Lymphocytes 2.4 10^3/uL (1.2-3.4); Absolute Monocytes 1.2 10^3/uL (0.1-0.6); Absolute Neutrophils 15.6 10^3/uL (1.4-6.5); Hematocrit 44.6 % (39.0-52.0); Hemoglobin 14.6 g/dL (13.0-18.0); Mean Corp Hgb Conc. 32.7 g/dL (33.0-37.0); Mean Corpuscular Hgb 27.9 pg (27.0-31.0); Mean Corpuscular Volume 85.1 fL (80.0-94.0); Mean Platelet Volume 9.9 fL (7.4-10.4); Nucleated Red Blood Cells % 0 % (-); Platelet Count 432 10^3/uL (130-400); Red Blood Cell Count 5.24 10^6/uL (4.70-6.10); Red Cell Dist. Width 15.1 % (11.5-14.5); White Blood Cell Count 19.5 10^3/uL (4.8-10.8)
[2025-03-07 10:32] LABS: ALT (SGPT) 24 U/L (0-50); AST (SGOT) 18 U/L (17-59); Alkaline Phosphatase 67 U/L (38-126); Blood Urea Nitrogen 20 mg/dl (9-20); Calcium 9.9 mg/dl (8.4-10.2); Carbon Dioxide 27 mmol/L (22-30); Chloride 104 mmol/L (98-107); Glucose 130 mg/dl (70-99); HDL Cholesterol 52 mg/dl; LDL Cholesterol, Calculated 43 mg/dl; Potassium 5.1 mmol/L (3.5-5.1); Sodium 138 mmol/L (135-145); Total Bilirubin 0.9 mg/dl (0.2-1.3); Total Cholesterol 121 mg/dl (50-199); Total Protein 6.7 g/dl (6.3-8.2); Triglyceride 132 mg/dl (10-149); Very Low Density Lipoprotein 26 mg/dl (0-30); eGFR > 60.00
[2025-03-07 10:38] LABS: Urine Albumin 2+ (Neg - Trace); Urine Bilirubin Negative (Negative); Urine Character Clear (Clear); Urine Color Yellow; Urine Glucose Negative (Negative); Urine Ketone Negative (Negative); Urine Leukocyte Negative (Negative); Urine Nitrite Negative (Negative); Urine Occult Blood 1+ (Negative); Urine Urobilinogen Negative (Neg - 1+)
[2025-03-07 10:59] LABS: Urine Bacteria Few (Negative); Urine Mucus Few; Urine Red Blood Cell 0-2 /HPF (0-2); Urine Squamous Cell 0-2 /LPF (Few); Urine White Cell 0-2 /HPF (0-5)
== END ==
LOC: REG 09:10
PROVIDERS: ATTENDING PHYSICIAN Physician Assistant; FAMILY PHYSICIAN Family Medicine
DX: R10.9 Unspecified abdominal pain (principal); R73.9 Hyperglycemia, unspecified; D72.829 Elevated white blood cell count, unspecified; R19.7 Diarrhea, unspecified; E78.2 Mixed hyperlipidemia; E11.69 Type 2 diabetes mellitus with other specified complication
CPT/HCPCS: 36415; 80053; 80061; 81003; 81015; 85025

== ENCOUNTER → 2025-06-13 10:04 | Outpatient (REF) | payer MEDICARE, SELFPAY ==
[2025-06-13 10:43] LABS: Hematocrit 44.0 % (39.0-52.0); Hemoglobin 14.3 g/dL (13.0-18.0); Mean Corp Hgb Conc. 32.5 g/dL (33.0-37.0); Mean Corpuscular Volume 86.4 fL (80.0-94.0); Nucleated Red Blood Cells % 0 % (-); Platelet Count 307 10^3/uL (130-400); Red Cell Dist. Width 14.2 % (11.5-14.5)
[2025-06-13 11:01] LABS: ALT (SGPT) 21 U/L (0-50); AST (SGOT) 19 U/L (17-59); Albumin 4.1 g/dl (3.5-5.0); Alkaline Phosphatase 63 U/L (38-126); Blood Urea Nitrogen 21 mg/dl (9-20); Calcium 9.6 mg/dl (8.4-10.2); Carbon Dioxide 28 mmol/L (22-30); Chloride 103 mmol/L (98-107); Glucose 134 mg/dl (70-99); Potassium 4.4 mmol/L (3.5-5.1); Sodium 136 mmol/L (135-145); Total Protein 6.9 g/dl (6.3-8.2); eGFR > 60.00
[2025-06-13 11:31] LABS: PSA, Total - Screen 0.77 ng/ml (0.0-4.0)
[2025-06-13 11:32] LABS: Glycohemoglobin (HgbA1c) 6.8 % (4.0-5.6)
== END ==
LOC: REG 10:04
PROVIDERS: ATTENDING PHYSICIAN Family Medicine
DX: M25.40 Effusion, unspecified joint (principal); E11.69 Type 2 diabetes mellitus with other specified complication; D72.829 Elevated white blood cell count, unspecified; Z12.5 Encounter for screening for malignant neoplasm of prostate
CPT/HCPCS: 36415; 80053; 83036; 85025; 86200; G0103

== ENCOUNTER 2025-07-16 04:08 | Observation (INO) | payer MEDICARE, SELFPAY ==
[2025-07-15 19:54] VITALS: BP 173/86
[2025-07-15 20:14] LABS: Hematocrit 49.1 % (39.0-52.0); Hemoglobin 16.4 g/dL (13.0-18.0); Mean Corp Hgb Conc. 33.4 g/dL (33.0-37.0); Mean Corpuscular Volume 88.5 fL (80.0-94.0); Nucleated Red Blood Cells % 0 % (-); Platelet Count 359 10^3/uL (130-400); Red Cell Dist. Width 13.4 % (11.5-14.5)
[2025-07-15 20:36] LABS: ALT (SGPT) 28 U/L (0-50); AST (SGOT) 33 U/L (17-59); Albumin 4.7 g/dl (3.5-5.0); Alkaline Phosphatase 83 U/L (38-126); Blood Urea Nitrogen 27 mg/dl (9-20); Calcium 9.8 mg/dl (8.4-10.2); Carbon Dioxide 30 mmol/L (22-30); Chloride 99 mmol/L (98-107); Glucose 236 mg/dl (70-99); Lipase 174 U/L (23-300); Potassium 4.9 mmol/L (3.5-5.1); Sodium 136 mmol/L (135-145); Total Protein 7.7 g/dl (6.3-8.2); eGFR > 60.00
[2025-07-15 20:55] VITALS: BP 149/76
[2025-07-15 21:00] VITALS: BP 135/76
[2025-07-15 21:09] VITALS: BMI 24.2
--- NOTE | 2025-07-15 21:48 | ED.GENMED ---
History of Present Illness
<Thalia Montague NP - Last Filed: 07/16/25 16:39>
General
Chief Complaint: Abdominal Symptoms
Source: patient
Exam Limitations: none
Time Seen by Provider: 07/15/25 21:46
Nursing documentation reviewed up to this point in time: agreed with
History of Present Illness
History of Present Illness:
Patient to the emergency department with complaint of severe diffuse abdominal pain. States he developed sudden onset of lower abdominal pain around 6 PM tonight. Pain continued to spread. Reports nausea and vomiting. He denies any episodes of
fever or chills. He has a known history of diverticulosis but denies any history of diverticulitis. Brought to ED by spouse for evaluation
Past History
<Thalia Montague NP - Last Filed: 07/16/25 16:39>
Past History
ED Past Medical History: CAD, GERD, HTN, Hypercholesterolemia, [place] and Other (TBI, PNA, Sleep apnea)
ED Past Surgical History: Cardiac (Stents X 4) and Orthopedic
Social History
Tobacco: Non-smoker
Alcohol: Occasional
Drug: None
Personal:
Living: with family
Employment: Employed
Review of Systems
<Thalia Montague NP - Last Filed: 07/16/25 16:39>
Review of Systems
Allergies reviewed?: Yes
All Other Systems: ROS reviewed and negative except as documented in HPI and ROS
Constitutional: Reports no symptoms
EENT: Reports no symptoms
Respiratory: Reports no symptoms
ABD/GI: Reports abdominal pain (Diffuse), nausea and vomiting
: Reports no symptoms
Musculoskeletal: Reports no symptoms
Skin: Reports no symptoms
Neurological: Reports no symptoms
Psychiatric: Reports no symptoms
Phy Exam
<Thalia Montague NP - Last Filed: 07/16/25 16:39>
General Physical Exam
General Presentation: moderate distress
General age: appears stated age
General Skin: warm and dry
General Habitus: normal
General Mental: alert
Cardiovascular Exam
Cardiovascular Exam: regular rate/rhythm and no edema
Gastrointestinal Exam
Gastrointestinal Exam: soft and no pulsatile mass
Palpation: generalized: Moderate tenderness
Musculoskeletal Exam
Musculoskeletal Exam: full ROM and neuro vasc intact
Skin Exam
Skin Exam: normal color, warm/dry and no rash
Psychiatric Exam
Psychiatric Exam: normal mood/affect
Course
<Thalia Montague NP - Last Filed: 07/16/25 16:39>
Orders/Labs/Results
Orders:
Orders
07/15/25 20:07
Complete Blood Count/With Diff Urgent
Comprehensive Metabolic Panel Urgent
Lipase Urgent
07/15/25 21:47
0.9% Sodium Chloride 1000 ml [Nss] 1,000 ml IV BOLUS
HYDROmorphone [Dilaudid] 0.5 mg IV NOW STA
Ondansetron Injectable [Zofran] 4 mg IV NOW STA
07/15/25 21:48
CT Abd/pelvis W Iv Cont Urgent
Comment:
Reason For Exam: diffuse pain, vomiting
07/15/25 21:52
Lactic Acid Urgent
07/15/25 23:40
Urinalysis Reflex To Culture Urgent
Date Specimen was Collected: 07/15/25
Time Specimen was Collected: 23:28
07/15/25 23:52
0.9% Sodium Chloride 1000 ml [Nss] 1,000 ml IV BOLUS
07/16/25 01:28
Complete Blood Count/With Diff Urgent
07/16/25 03:13
ECG [Electrocardiogram (*1)] Stat
Reason for Study: Abdominal Pain
07/16/25 03:50
Admit/Transfer Patient As Directed
Co-Sign Provider:
Level of Care: Observation services
Assign to:: Medical/Surgical
Physician / Group: Jorge
Diagnosis: abdominal pain
07/16/25 03:51
Code Status As Directed
Resuscitation Status: Full Code
PRN Pain Medication Management As Directed
May give lesser potent ordered pain med per pt: Yes
preference::
Protocol:: Medication orders for pain may be administered in a
manner that supports deferring to patient preference
when the pt is:
- Requesting an ordered lesser potent pain medication.
Least to most potent pain medications are defined
as: acetaminophen < NSAID < tramadol < opioids
(morphine, oxycodone, hydromorphone).
- Requesting a lesser dose of the same medication IF
ORDERED.
- Requesting a less intrusive route of administration
if both routes are prescribed by the provider (PO <
IV).
07/16/25 04:46
Acetaminophen [Tylenol] 650 mg PO Q4HPRN PRN
Bisacodyl [Dulcolax] 10 mg RECTAL [id number] PRN
Dextrose 50%-Water [Dextrose 50% Syringe] 12.5 grams IV [id number] PRN
Docusate W/Senna [Senokot-S] 1 tablet PO BIDPRN PRN
Glucagon [GlucaGen] 1 mg IM PRN PRN
HYDROmorphone [Dilaudid] 0.5 mg IV Q4HPRN PRN
Mag Hydrox/Al Hydrox/Simeth [Maalox] 30 ml PO Q6HPRN PRN
Ondansetron Injectable [Zofran] 4 mg IV Q6HPRN PRN
Polyethylene Glycol Powder [Miralax] 17 grams PO DAILYPRN PRN
07/16/25 04:46
Activity As Directed
Activity Level: With Assistance
Bedside Glucose Monitoring As Directed
Frequency: AC&HS
Additional Instructions:: Change to q6h if pt on TPN, tube feeding or not eating
Pneumatic Compression Sleeves As Directed
Type: Knee high
Vital Signs As Directed
Frequency: Per unit guidelines
Pulse Ox/spot Check [RESP] Routine
Quantity: 1
DX Deep Vein Thrombosis Video Routine
07/16/25 Breakfast
1800 calorie (15 carb) Diabetic
At Your Request: Full Participation
07/16/25 06:26
Complete Blood Count/No Diff IN AM
Glycohemoglobin (HgbA1c) IN AM
07/16/25 07:30
Insulin Aspart Corrective Low [Novolog Flexpen-Low Resistance] See Protocol SC AC
07/16/25 08:00
Clopidogrel Bisulfate [Plavix] 75 mg PO DAILY
Pantoprazole [Protonix] 40 mg PO Q48H
07/16/25 18:00
Rosuvastatin Calcium [Crestor] 10 mg PO QPM
Abnormal Lab Results
07/15/25 07/16/25
20:07 01:28
WBC 23.9 H 10^3/uL 25.8 H 10^3/uL
(4.8-10.8) (4.8-10.8)
MCHC 32.2 L g/dL
(33.0-37.0)
MPV 10.5 H fL
(7.4-10.4)
Abs Immat Gran (auto) 0.1 H 10^3/uL 0.2 H 10^3/uL
(0-0.05) (0-0.05)
Absolute Neuts (auto) 19.1 H 10^3/uL 20.8 H 10^3/uL
(1.4-6.5) (1.4-6.5)
Absolute Monos (auto) 1.8 H 10^3/uL 2.8 H 10^3/uL
(0.1-0.6) (0.1-0.6)
Immature Gran % 0.7 H %
(0-0.5)
Neutrophils % 80.1 H % 80.6 H %
(42.2-75.2) (42.2-75.2)
Lymphocytes % 10.9 L % 7.4 L %
(20.5-51.1) (20.5-51.1)
Monocytes % 10.7 H %
(1.7-9.3)
BUN 27 H mg/dl
(9-20)
Glucose 236 H mg/dl
(70-99)
07/16/25 01:28
07/15/25 20:07
Vital Signs
Initial and Last Documented VS:
Initial Vital Signs
Temp Pulse Resp BP Pulse Ox
98.4 F 80 16 173/86 97
07/15/25 19:54 07/15/25 19:54 07/15/25 19:54 07/15/25 19:54 07/15/25 19:54
Last Documented Vital Signs
Temp Pulse Resp BP Pulse Ox
98.2 F 82 18 136/79 98
07/16/25 11:00 07/16/25 11:00 07/16/25 11:00 07/16/25 11:00 07/16/25 11:00
<Arnaud Augustin, - Last Filed: 07/16/25 03:20>
Orders/Labs/Results
Orders:
Orders
07/15/25 20:07
Complete Blood Count/With Diff Urgent
Comprehensive Metabolic Panel Urgent
Lipase Urgent
07/15/25 21:47
0.9% Sodium Chloride 1000 ml [Nss] 1,000 ml IV BOLUS
HYDROmorphone [Dilaudid] 0.5 mg IV NOW STA
Ondansetron Injectable [Zofran] 4 mg IV NOW STA
07/15/25 21:48
CT Abd/pelvis W Iv Cont Urgent
Comment:
Reason For Exam: diffuse pain, vomiting
07/15/25 21:52
Lactic Acid Urgent
07/15/25 23:40
Urinalysis Reflex To Culture Urgent
Date Specimen was Collected: 07/15/25
Time Specimen was Collected: 23:28
07/15/25 23:52
0.9% Sodium Chloride 1000 ml [Nss] 1,000 ml IV BOLUS
07/16/25 01:28
Complete Blood Count/With Diff Urgent
07/16/25 03:13
ECG [Electrocardiogram (*1)] Stat
Reason for Study: Abdominal Pain
07/16/25 03:50
Admit/Transfer Patient As Directed
Co-Sign Provider:
Level of Care: Observation services
Assign to:: Medical/Surgical
Physician / Group: Jorge
Diagnosis: abdominal pain
07/16/25 03:51
Code Status As Directed
Resuscitation Status: Full Code
PRN Pain Medication Management As Directed
May give lesser potent ordered pain med per pt: Yes
preference::
Protocol:: Medication orders for pain may be administered in a
manner that supports deferring to patient preference
when the pt is:
- Requesting an ordered lesser potent pain medication.
Least to most potent pain medications are defined
as: acetaminophen < NSAID < tramadol < opioids
(morphine, oxycodone, hydromorphone).
- Requesting a lesser dose of the same medication IF
ORDERED.
- Requesting a less intrusive route of administration
if both routes are prescribed by the provider (PO <
IV).
07/16/25 04:46
Acetaminophen [Tylenol] 650 mg PO Q4HPRN PRN
Bisacodyl [Dulcolax] 10 mg RECTAL [id number] PRN
Dextrose 50%-Water [Dextrose 50% Syringe] 12.5 grams IV [id number] PRN
Docusate W/Senna [Senokot-S] 1 tablet PO BIDPRN PRN
Glucagon [GlucaGen] 1 mg IM PRN PRN
HYDROmorphone [Dilaudid] 0.5 mg IV Q4HPRN PRN
Mag Hydrox/Al Hydrox/Simeth [Maalox] 30 ml PO Q6HPRN PRN
Ondansetron Injectable [Zofran] 4 mg IV Q6HPRN PRN
Polyethylene Glycol Powder [Miralax] 17 grams PO DAILYPRN PRN
07/16/25 04:46
Activity As Directed
Activity Level: With Assistance
Bedside Glucose Monitoring As Directed
Frequency: AC&HS
Additional Instructions:: Change to q6h if pt on TPN, tube feeding or not eating
Pneumatic Compression Sleeves As Directed
Type: Knee high
Vital Signs As Directed
Frequency: Per unit guidelines
Pulse Ox/spot Check [RESP] Routine
Quantity: 1
DX Deep Vein Thrombosis Video Routine
07/16/25 Breakfast
1800 calorie (15 carb) Diabetic
At Your Request: Full Participation
07/16/25 06:26
Complete Blood Count/No Diff IN AM
Glycohemoglobin (HgbA1c) IN AM
07/16/25 07:30
Insulin Aspart Corrective Low [Novolog Flexpen-Low Resistance] See Protocol SC AC
07/16/25 08:00
Clopidogrel Bisulfate [Plavix] 75 mg PO DAILY
Pantoprazole [Protonix] 40 mg PO Q48H
07/16/25 18:00
Rosuvastatin Calcium [Crestor] 10 mg PO QPM
Abnormal Lab Results
07/15/25 07/16/25
20:07 01:28
WBC 23.9 H 10^3/uL 25.8 H 10^3/uL
(4.8-10.8) (4.8-10.8)
MCHC 32.2 L g/dL
(33.0-37.0)
MPV 10.5 H fL
(7.4-10.4)
Abs Immat Gran (auto) 0.1 H 10^3/uL 0.2 H 10^3/uL
(0-0.05) (0-0.05)
Absolute Neuts (auto) 19.1 H 10^3/uL 20.8 H 10^3/uL
(1.4-6.5) (1.4-6.5)
Absolute Monos (auto) 1.8 H 10^3/uL 2.8 H 10^3/uL
(0.1-0.6) (0.1-0.6)
Immature Gran % 0.7 H %
(0-0.5)
Neutrophils % 80.1 H % 80.6 H %
(42.2-75.2) (42.2-75.2)
Lymphocytes % 10.9 L % 7.4 L %
(20.5-51.1) (20.5-51.1)
Monocytes % 10.7 H %
(1.7-9.3)
BUN 27 H mg/dl
(9-20)
Glucose 236 H mg/dl
(70-99)
07/16/25 01:28
07/15/25 20:07
Vital Signs
Initial and Last Documented VS:
Initial Vital Signs
Temp Pulse Resp BP Pulse Ox
98.4 F 80 16 173/86 97
07/15/25 19:54 07/15/25 19:54 07/15/25 19:54 07/15/25 19:54 07/15/25 19:54
Last Documented Vital Signs
Temp Pulse Resp BP Pulse Ox
98.2 F 82 18 136/79 98
07/16/25 11:00 07/16/25 11:00 07/16/25 11:00 07/16/25 11:00 07/16/25 11:00
<Thalia Montague NP - Last Filed: 07/16/25 16:39>
*Pulse Oximetry
SaO2: 98
Oxygen Mode of Delivery: Room air
Patient hypoxic: no
*Critical Care Note
Total Time (30-74mins, 75-104mins- exclusive of procedures): Not Applicable
<Thalia Montague PATROLLER - Last Filed: 07/16/25 16:39>
Update Note
Update Note:
Patient to the emergency department with sudden onset of severe lower abdominal pain that eventually migrated throughout abdomen. Symptoms started approximately 6:00 tonight no prior history of same. He denies fever or chills. He remains afebrile
in the ED. Labs reviewed. WBC of 23.9 noted. Lactic 1.9. He has received 1 L of normal saline. Given Dilaudid and Zofran for pain and nausea with good relief. CT of abdomen and pelvis with IV contrast was obtained, results are pending. He is
resting comfortably.
<Arnaud Augustin DO - Last Filed: 07/16/25 03:20>
Update Note
Update Note:
Patient to the emergency department with sudden onset of severe lower abdominal pain that eventually migrated throughout abdomen. Symptoms started approximately 6:00 tonight no prior history of same. He denies fever or chills. He remains afebrile
in the ED. Labs reviewed. WBC of 23.9 noted. Lactic 1.9. He has received 1 L of normal saline. Given Dilaudid and Zofran for pain and nausea with good relief. CT of abdomen and pelvis with IV contrast was obtained, results are pending. He is
resting comfortably.
NAME: GINO PHILLIPS
DATE OF EXAM: 07/16/2025
Patient No: [id number]
Physician: MECHELLE^ARNAUD^P.
Date of : 1960
Past Medical History (entered by Technologist):
Reason For Exam (entered by Technologist): Abdominal pain
Other Notes (entered by Technologist):
Additional Information (per [facility]iologist):
Right upper quadrant ultrasound
IMPRESSION:
3 mm echogenicin the gallbladder possibly a stone or small polyp. No gallbladder wall thickening or pericholecystic fluid.
Negative sonographic Snyder's.
Common bile duct measures 4 mm.
Liver and right kidney are unremarkable.
Case finalized on 07/16/25 01:02 EST
Michelle Arvizu M.D.
This report has been electronically signed and verified by the Radiologist whose name is printed above.
ED Attending Note
<Thalia Montague PATROLLER - Last Filed: 07/16/25 16:39>
-
Portions of this chart may have been created with voice recognition software.� Occasional wrong word or��sound alike� substitutions may have occurred due to the inherent limitations of voice recognition software.
<Arnaud Augustin DO - Last Filed: 07/16/25 03:20>
ED Attending Note
Patient seen and examined by attending physician: Yes
I performed the substantive portion of visit, reviewed & personally made and approve the management plan that is documented in note by myself or SHERMAN.: Yes
ED Attending Note:
Pleasant 65-year-old male who presents with sudden onset upper abdominal pain. Was seen by the nurse practitioner. I have reviewed and agree with her history and treatment plan. Patient had a CT scan which did not show any acute processes.
Ultrasound showed possible 3 mm stone but otherwise normal gallbladder findings. Patient still having rare upper and mid to upper quadrant abdominal pain. His white blood cell count was high at almost 25,000 and almost 27,000. Since the pain
started to return and patient required multiple doses of pain medication, patient to be admitted to the hospitalist service for continued observation.
Discharge Plan
Departure
Patient Disposition: Admit
Date of Disposition: 07/16/25
Time of Disposition: 03:19
Admit to: Telemetry
Presentation/result/management discussed w/ accepting MD/DO: Hospitalist
Discharge Problem:
Abdominal pain
Interventions
Interventions:
*Risk Screen - Suicide Last Done: 07/15/25 19:56
*General Assessment Last Done: 07/15/25 21:07
*Neglect/Abuse Screening Last Done: 07/15/25 19:56
*ED- Fall Risk Assessment Last Done: 07/15/25 21:07
*ED COVID-19 Vaccine History Last Done: 07/16/25 04:54
*ED Influenza Vaccine History Last Done: 07/15/25 21:07
*Nursing Disposition Last Done: 07/16/25 04:41
NU-Diiiqb-[id number] Assessment Last Done: 07/15/25 21:09
Discharge Date and Time
Discharge Date/Time: 07/16/25 04:42
[2025-07-15] MEDS: DILAUDID 0.5 MG IV (21:58)
[2025-07-15] MEDS: ZOFRAN 4 MG IV (21:58)
[2025-07-15] MEDS: NSS 1000 IV (22:00)
[2025-07-15 22:26] VITALS: BP 167/92
[2025-07-16 00:02] LABS: Urine Character Clear (Clear)
[2025-07-16] MEDS: NSS 1000 IV (00:07)
[2025-07-16 01:46] LABS: Hematocrit 42.8 % (39.0-52.0); Hemoglobin 13.8 g/dL (13.0-18.0); Mean Corp Hgb Conc. 32.2 g/dL (33.0-37.0); Mean Corpuscular Volume 88.1 fL (80.0-94.0); Platelet Count 303 10^3/uL (130-400); Red Cell Dist. Width 13.5 % (11.5-14.5)
[2025-07-16 02:05] LABS: Nucleated Red Blood Cells % 0 % (-)
--- NOTE | 2025-07-16 03:14 | HPS.HSE ---
Family Physician
-
Family Physician: Elliot Tapia
Chief Complaint
-
Abdominal pain
History of Present Illness
This is a 65-year-old with past medical history significant for type 2 diabetes, paroxysmal atrial fibrillation, GERD with Wilder's esophagus, history of MS status post stenting on dual antiplatelet therapy presenting to the emergency department
with abdominal pain.
Patient reports being in usual state of health up until about 5:30 PM. He had dinner and then about 30 minutes afterwards developed bilateral lower quadrant/suprapubic abdominal pain. Reports that it was sharp and he felt nauseous but did not
vomit. He tried to take a shower to relieve the pain but the pain continued and decided come to the emergency department. Initially there was no radiation. On arrival in the emergency department he vomited and nonbloody emesis and reported that
the pain radiated to the epigastric region and to the back. He denied any shortness of breath. He denied any palpitations lightheadedness or dizziness. He only vomited twice and he has not vomited since. He reported that he had eaten out earlier
in the day and had some shaking at that time which he brought home and ate.
He denied any recent urinary symptoms. He denied any recent cough cold or flulike symptoms. He stated that a year ago he had been intermittently on steroids for recurrent URIs which was later attributable to reflux disease. He said that he
recently had steroid injection in the shoulder about a week ago. He denied any other medication changes.
In the emergency department he was afebrile, blood pressure 167/92 with a pulse rate of 91 satting 94% on room air. ECG is nonischemic. CBC with a white count of 25, hemoglobin of 13.8 and a plate count of 303. Differential did not show
significant immature cells. Electrolytes BUN and creatinine were unremarkable with a glucose of 230. LFTs were normal. Lipase was normal. UA was negative.
A CT of the abdomen pelvis showed diverticulosis but no evidence of obstruction or any other significant abnormality.
Ultrasound with 3 mm echogenicity in the gallbladder, possibly a stone or a small polyp. No gallbladder wall thickening or pericholecystic fluid. Negative sonographic Snyder sign. Common bile duct was not dilated at 4 mm.
Medical History
Past Medical History
Past Medical History: Reports CAD (Status post STEMI and stenting), GERD (Wilder's esophagus), HTN and Hypercholesterolemia
Past Surgical History: Reports Orthopedic (knee repairs both ) and Other
Additional Past Surgical History:
ear surgery 02/2021
Perforated ear drum 09/2021
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
Surgical History Right hand surgery 01/2024
Social History
Tobacco: Non-smoker
Alcohol: None
Drug: None
Personal:
Living: With Family
Family History
Family History: Not pertinent
Allergies / Home Medications
Allergies reflects when Allergies were last updated in [facility].
Home Medications with original date entered in [facility]
Allergy/Medication List:
Allergies
Allergy/AdvReac Type Severity Reaction Status Date / Time
Penicillins Allergy Unknown Verified 04/28/23 06:16
ticagrelor (From Brilinta) Allergy Rash Verified 04/28/23 06:16
Home Medications
rabeprazole 20 mg tablet,delayed release (AcipHex) 20 mg PO Q48H 02/15/18
Multivitamin 1 tab PO QPM 03/11/21
aspirin 81 mg tablet,delayed release (Aspir-Low) 81 mg PO QPM 03/11/21
rosuvastatin 10 mg tablet 10 mg PO QPM 03/11/21
acetaminophen 325 mg tablet (Tylenol) 500 mg PO DAILY 04/28/23
clopidogrel 75 mg tablet 75 mg PO DAILY #90 tabs 04/28/23
nitroglycerin 0.4 mg sublingual tablet 0.4 mg sublingual [id number] PRN chest pain #25 tabs 04/28/23
doxycycline hyclate 100 mg capsule 100 mg PO BID #14 caps 05/31/23
azithromycin 250 mg tablet (Zithromax) 250 mg PO DAILY #4 tabs 12/08/24
cefpodoxime 200 mg tablet 200 mg PO BID #14 tabs 12/08/24
Review of Systems
-
Constitutional: Reports No Symptoms
EENT: Reports No Symptoms
Respiratory: Reports No Symptoms
Cardiac: Reports No Symptoms
Abdomen/GI: Reports Abdominal Pain
: Reports No Symptoms
Musculoskeletal: Reports No Symptoms
Skin: Reports No Symptoms
Neurological: Reports No Symptoms
Endocrine: Reports No Symptoms
Hematologic/Lymphatic: Reports No Symptoms
Psych: Reports No Symptoms
Physical Exam
Vital Signs
Vital Signs
Temp Pulse Resp BP Pulse Ox
98.4 F 91 24 167/92 94
07/15/25 19:54 07/16/25 02:15 07/16/25 02:15 07/15/25 22:26 07/16/25 02:15
Physical Exam
General: Well Developed, Well Nourished and No Apparent Distress
HEENT: NormoCephalic, Moist mucous membranes and Atraumatic
Respiratory: Clear
Cardiac: S1/S2 and Regular Rhythm; No Murmur or Rub
GI: Soft, Non Tender, Non Distended and Normal Bowel Sounds; No Organomegaly
Rectal: Deferred by Provider
Musculoskeletal: No Clubbing, No Cyanosis and No Edema
Skin: No Rash
Neuro: Nonfocal/grossly intact
Laboratory Results
-
07/16/25 01:28
07/15/25 20:07
Laboratory Results
Lactic Acid 1.9 mmol/L (0.7-2.0) 07/15/25 21:52
Total Bilirubin 0.3 mg/dl (0.2-1.3) 07/15/25 20:07
AST 33 U/L (17-59) 07/15/25 20:07
ALT 28 U/L (0-50) 10/28/25 20:07
Alkaline Phosphatase 83 U/L (38-126) 07/15/25 20:07
Lipase 174 U/L (23-300) 07/15/25 20:07
Data Reviewed
-
CT Scan: Report Reviewed by me
Ultrasound: Report Reviewed by me
Lab Data: Labs Reviewed by me
Old Records: Reviewed
Impression/Plan
-
IMPRESSION:
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
have leukocytosis to 25. Rest of the workup in the ED was actually unremarkable with normal LFTs, normal lactic acid. Normal chemistries BUN/creatinine. CT of the abdomen pelvis was without any abnormalities only showing diverticulosis. No bowel
obstruction and no findings. Ultrasound shows a 3 mm echogenicity in the gallbladder possibly a stone/polyp but no gallbladder wall thickening or pericholecystic fluid. Common bile duct was not distended. Patient reports that he is completely
comfortable at this time. He did receive IV opioids with improvement in his symptoms. He is no longer having any nausea or vomiting and denies any abdominal pain at this time.
PLAN:
Abdominal pain -unclear etiology, possibly food poisoning versus biliary colic. No clear infectious process at this time.
- Admit to MedSurg observation
- Advance diet as tolerated
- Pain control as needed with oral opioids
- Continue his PPI per home regimen
- ECG with, no evidence of an acute ischemic process.
Leukocytosis -patient with leukocytosis to 24 which increased slightly during's evaluation in the ED. again no signs of an acute infection. He did get a steroid injection about 1 week ago. He has had elevated leukocytosis in the past in the
setting of steroid use for upper respiratory symptoms and I suspect this is the etiology. The patient's differential shows no significant elevation of immature cells.
�Patient can have outpatient CBC follow-up after is off the steroid and has no further abdominal symptoms.
- No further infectious workup is necessary at this time
Gallbladder -3 mm polyp versus noncalcified stone. Possible biliary colic, no LFT lipase abnormalities. No evidence of choledocholithiasis.
- Pain control as above
- No evidence of acute cholecystitis, f/u final read on u/s
- Follow-up with outpatient PMD
CAD
- Continue patient's Plavix
Diabetes
- Hold metformin
- sliding scale insulin
DVT prophylaxis�Lovenox subcu
CODE STATUS�full code
--- NOTE | 2025-07-16 04:45 | PTCARENOTE ---
Patient received from ED via stretcher. Patient walked into room. Patient AAOx3, vitals stable, and no complaints of pain. Oriented to room and call hendrix within reach.
[2025-07-16 04:47] VITALS: BMI 24.3
[2025-07-16 04:50] VITALS: BP 129/73
[2025-07-16 06:43] LABS: Hematocrit 41.2 % (39.0-52.0); Hemoglobin 13.9 g/dL (13.0-18.0); Mean Corp Hgb Conc. 33.7 g/dL (33.0-37.0); Mean Corpuscular Volume 86.6 fL (80.0-94.0); Platelet Count 296 10^3/uL (130-400); Red Cell Dist. Width 13.4 % (11.5-14.5)
[2025-07-16 07:00] VITALS: BP 129/81
[2025-07-16] MEDS: PLAVIX 75 MG PO (07:52)
[2025-07-16] MEDS: PROTONIX 40 MG PO (07:53)
[2025-07-16 08:09] LABS: Glucose - Point of Care 229 mg/dl (70-99)
[2025-07-16 09:28] LABS: Glycohemoglobin (HgbA1c) 6.9 % (4.0-5.9)
[2025-07-16] MEDS: NOVOLOG FLEXPEN-LOW RESISTANCE SC (09:34)
[2025-07-16] MEDS: NOVOLOG FLEXPEN-LOW RESISTANCE 2 UNITS SC (09:46)
--- NOTE | 2025-07-16 10:17 | W.PN.HOSP.TC ---
Today's Communication/Plan
-
OK for DC today
Assessment / Plan
Assessment / Plan
IMPRESSION:
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
have leukocytosis to 25.
CT A/P
IMPRESSION:
Diverticulosis. No evidence of acute diverticulitis. No bowel obstruction. Relatively mild colonic fecal burden. No specific gastric abnormality identified.
No obstructive uropathy.
PLAN:
Gastroenteritis
Abdominal pain
Nausea/Vomiting/Diarrhea
-symptoms now resolved, patient tolerating regular diet, OK for DC
Gallbladder Polyp
-will need follow up US in 6 months
Leukocytosis -patient with leukocytosis to 24
-may be reactive in setting of gastroenteritis; steroid shot several weeks ago
-no e/o lingering infection or need for antibiotics
-repeat CBC as outpatient in one week
CAD
- Continue patient's Plavix
Diabetes
- Hold metformin
- sliding scale insulin
DVT prophylaxis�Lovenox subcu
CODE STATUS�full code
Anticipated Discharge: Today
Subjective/Interval History
-
Date of Service: July 16, 2025
feeling well
no further vomiting or diarrhea
ate breakfast this morning
Objective Data
-
Labs:
Laboratory Results
07/16/25 07/16/25
01:28 06:26
WBC 25.8 H 24.6 H
Hgb 13.8 13.9
Hct 42.8 41.2
Plt Count 303 296
Vital Signs:
Vital Signs
Temp Pulse Resp BP Pulse Ox
98.3 F 83 18 129/81 96
07/16/25 07:00 07/16/25 07:00 07/16/25 07:00 07/16/25 07:00 07/16/25 07:00
I&O
07/15/25 07/16/25 07/17/25
06:59 06:59 06:59
Intake Total 480 / 480
Balance 480 / 480
Review of Systems
-
History Source: Patient
All other systems: Reviewed and negative
Physical Exam
-
General: No Apparent Distress
HEENT: PERRLA
Respiratory: Clear to Auscultation; Negative Wheezes
Cardiac: Regular Rhythm and S1/S2
GI: Soft and Nontender
Musculoskeletal: No Edema
Skin: Warm and Dry; Negative Rash
Neuro: AO x 3
Psych: Calm
Data Reviewed
-
Diagnostic Radiology: Report Reviewed by me
Labs: Labs Reviewed by me
--- NOTE | 2025-07-16 10:41 | W.DS.TRANS ---
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
-
Discharge Instructions:
Discharge Diagnosis/Procedures Acute Gastroenteritis, Leukocytosis
Diet Diabetic, Carb Controlled
Activity As tolerated
Driving Restrictions As prior to admission
Blood Work CBC in one week
Others Tests Repeat abdominal US to be ordered in 6 months to
monitor small gallbladder polyp
Instructions:
Stand-Alone Forms:
Changes to Home Medications: No
Discharge Medications:
DC Medications w/original date entered in [facility]
rabeprazole 20 mg tablet,delayed release (AcipHex) 20 mg PO Q48H 02/15/18
Multivitamin 1 tab PO QPM 03/11/21
aspirin 81 mg tablet,delayed release (Aspir-Low) 81 mg PO QPM 03/11/21
rosuvastatin 10 mg tablet 10 mg PO QPM 03/11/21
nitroglycerin 0.4 mg sublingual tablet 0.4 mg sublingual [id number] PRN chest pain #25 tabs 04/28/23
albuterol sulfate 90 mcg/actuation aerosol inhaler 1 inh inhalation ONCE 07/16/25
fluticasone propionate 50 mcg/actuation nasal spray,suspension 1 spray intranasal DAILY 07/16/25
metformin 500 mg tablet 500 mg PO DAILY 07/16/25
vonoprazan 20 mg tablet (Voquezna) 20 mg PO DAILY 07/16/25
Home Medication Changes
Pending Results: No
[2025-07-16 11:00] VITALS: BP 136/79
--- NOTE | 2025-07-16 11:00 | CM ---
Patient will d/c home today. Patient seen bedside, initial assessment completed. Patient is a 65-year-old with past medical history significant for type 2 diabetes, paroxysmal atrial fibrillation, GERD with Wilder's esophagus, history of RI status
post stenting on dual antiplatelet therapy presenting to the emergency department with abdominal pain.
Patient resides w/ spouse in a 2[facility], 2 steps to enter from the outside. Patient is independent in all areas. No DME, only has a blood pressure cuff. No SNF/HC hx.
Address, point of contact and insurance verified
PCP: Elliot Tapia
Pharmacy: [facility]
Patient admitted obs. EDWARDS form verbally reviewed, copy provided, copy on chart
Plan: Home, no needs
--- NOTE | 2025-07-16 13:33 | W.DCSUMMARY ---
Discharge Summary
Discharge Data
Date of Admission: 07/16/25
Date of Discharge: 07/16/25
-
Pending Results: No
Hospital Course
Discharging Physician : Dr. Nguyen Bennett
Disposition : Home
Primary care physician : Dr. Elliot Tapia
Principal Discharge diagnosis : Gastroenteritis
Hospital Course :
Mr. Aidan Gabriel is a 65 yo man with hx CAD (s/p multiple PCI), hyperlipidemia, GERD, chronic pain who presents to the emergency department with acute episode of abdominal pain, vomiting and diarrhea. Triage vitals significant for hypertension,
Labs significant for leukocytosis. CT A/P without acute abnormality. He was admitted to medicine for treatment of gastroenteritis. Symptoms resolved the following morning and he is tolerating a regular diabetic diet prior to discharge. Patient's
WBC remained elevated at 24.6. Last steroid injection several weeks ago. May be stress reaction to viral infection. Repeat CBC ordered in one week, to be followed up by PCP.
Abdominal US showed a small gallbladder polyp, recommend repeat imaging in 6 months to ensure stability.
Time spent on discharge was 31 minutes.
Important imaging findings :
CT A/P
IMPRESSION:
Diverticulosis. No evidence of acute diverticulitis. No bowel obstruction. Relatively mild colonic fecal burden. No specific gastric abnormality identified.
No obstructive uropathy.
Abdominal US
IMPRESSION:
1. No evidence of cholelithiasis or acute cholecystitis. No biliary ductal dilation.
2. Small gallbladder polyp measures 3 mm in diameter, likely benign.
Procedure findings :
Discharge Plan
-
Patient Disposition: Home (Routine Discharge)
Discharge Diagnosis/Procedures: Acute Gastroenteritis, Leukocytosis
Diet: Diabetic, Carb Controlled
Activity: As tolerated
Driving Restrictions: As prior to admission
Blood Work: CBC in one week
Others Tests: Repeat abdominal US to be ordered in 6 months to monitor small gallbladder polyp
Referrals:
Elliot Tapia MD [Family Provider, Family Practice] - in less than 1 week
Prescriptions:
Continued
rabeprazole [AcipHex] 20 MG tablet,delayed release (DR/EC)
20 mg PO Q48H
aspirin [Aspir-Low] 81 MG tablet,delayed release (DR/EC)
81 mg PO QPM
rosuvastatin 10 MG tablet
10 mg PO QPM
Multivitamin
1 tab PO QPM
Patient Comments:
does not take per pt
nitroglycerin 0.4 MG tablet, sublingual
0.4 mg sublingual [id number] PRN (Reason: chest pain) Qty: 25 2RF
metformin 500 mg Tablet
500 mg PO DAILY
albuterol sulfate 90 mcg/actuation Hfa Aerosol Inhaler
1 inh INHALATION ONCE
fluticasone propionate 50 mcg/actuation [place],Suspension
1 spray INTRANASAL DAILY
Voquezna 20 mg Tablet
20 mg PO DAILY
Discontinued
acetaminophen [Tylenol] 325 mg Tablet
500 mg PO DAILY
Patient Comments:
does not take per pt
clopidogrel 75 MG tablet
75 mg PO DAILY Qty: 90 5RF
Patient Comments:
pt states he does not take anymore
doxycycline hyclate 100 mg capsule
100 mg PO BID Qty: 14 0RF
Patient Comments:
does not take per pt
cefpodoxime 200 mg tablet
200 mg PO BID Qty: 14 0RF
Patient Comments:
does not take per pt
azithromycin [Zithromax] 250 mg tablet
250 mg PO DAILY Qty: 4 0RF
Patient Comments:
does not take per pt
Discharge Orders:
Discharge Patient (As Directed); Ordered 07/16/25
Ordered By: Nguyen Bennett
Discharge Date and Time
Discharge Date/Time: 07/16/25 11:00
Print Language: OCCITAN
== END 2025-07-16 11:00 | disposition home or self-care (01) ==
LOC: 4 WEST ACU 04:08
PROVIDERS: Nurse Practitioner; Student in an Organized Health Care Education/Training Program; ADMITTING PHYSICIAN Internal Medicine; ATTENDING PHYSICIAN Student in an Organized Health Care Education/Training Program; EMERGENCY PHYSICIAN Student in an Organized Health Care Education/Training Program; FAMILY PHYSICIAN Family Medicine
DX: K52.9 Noninfective gastroenteritis and colitis, unspecified (principal); R10.9 Unspecified abdominal pain; R11.2 Nausea with vomiting, unspecified; D72.829 Elevated white blood cell count, unspecified; E78.00 Pure hypercholesterolemia, unspecified; G89.29 Other chronic pain; G47.30 Sleep apnea, unspecified; I48.0 Paroxysmal atrial fibrillation; E11.9 Type 2 diabetes mellitus without complications; I10 Essential (primary) hypertension; K82.4 Cholesterolosis of gallbladder; I25.10 Atherosclerotic heart disease of native coronary artery without angina pectoris; K57.30 Diverticulosis of large intestine without perforation or abscess without bleeding; K21.9 Gastro-esophageal reflux disease without esophagitis; I25.2 Old myocardial infarction; Z87.820 Personal history of traumatic brain injury; Z87.01 Personal history of pneumonia (recurrent); Z95.5 Presence of coronary angioplasty implant and graft; Z87.19 Personal history of other diseases of the digestive system; Z88.0 Allergy status to penicillin; Z88.8 Allergy status to other drugs, medicaments and biological substances; Z79.82 Long term (current) use of aspirin; Z79.02 Long term (current) use of antithrombotics/antiplatelets; Z79.2 Long term (current) use of antibiotics
CPT/HCPCS: 74177; 76705; 80053; 81003; 82962; 83036; 83605; 83690; 85025; 85027; 93005; 96361; 96374; 96375; 99285; G0378; Q9967

== ENCOUNTER → 2025-07-24 07:19 | Outpatient (REF) | payer MEDICARE, SELFPAY ==
[2025-07-24 08:19] LABS: Hematocrit 43.2 % (39.0-52.0); Hemoglobin 14.2 g/dL (13.0-18.0); Mean Corp Hgb Conc. 32.9 g/dL (33.0-37.0); Mean Corpuscular Volume 88.5 fL (80.0-94.0); Nucleated Red Blood Cells % 0 % (-); Platelet Count 360 10^3/uL (130-400); Red Cell Dist. Width 13.2 % (11.5-14.5)
== END ==
LOC: REG 07:19
PROVIDERS: ATTENDING PHYSICIAN Student in an Organized Health Care Education/Training Program; FAMILY PHYSICIAN Family Medicine
DX: D72.829 Elevated white blood cell count, unspecified (principal)
CPT/HCPCS: 36415; 85025